=== PATIENT | female | born 1980 | race Caucasian/White ===

== ENCOUNTER 2016-10-18 17:26 | Emergency (ER) | payer SELFPAY ==
--- NOTE | 2016-10-18 18:32 | ED Physician Documentation ---
Head Injury - HISTORIAN Historian: patient - HPI Stated Complaint: facial injury Chief Complaint: Head Injury Additional Information: box fell and hit right jaw, no loc Onset: just prior to arrival Where: work Timing: still present Context: direct blow Severity: mild Loss of Consciousness: no loss of consciousness Further Comments: no - ROS CONST: no problems CVS/RESP: none EYES/ENT: none MS/SKIN/LYMPH: denies: weakness, numbness, neck pain, back pain, ankle swelling , leg swelling, rash GI/: denies: nausea, vomiting, abdominal pain, problems urinating - PAST HX Past History: none Immunizations: referred to PCP Allergies/Adverse Reactions: Allergies Allergy/AdvReac Type Severity Reaction Status Date / Time No Known Allergies Allergy Unverified 10/18/16 17:45 Home Medications: Ambulatory Orders Medication Instructions Recorded NK [NK] 10/18/16 - SOCIAL HX Smoking History: non-smoker Alcohol Use: none Drug Use: none - FAMILY HX Family History: no significant history - VITAL SIGNS Vital Signs: Vital Signs Temp Pulse Resp BP Pulse Ox 97.5 F L 98 H 14 128/90 99 10/18/16 17:37 10/18/16 17:37 10/18/16 17:37 10/18/16 17:37 10/18/16 17:37 - REVIEWED ASSESSMENTS Nursing Assessment Reviewed: Yes Vitals Reviewed: Yes Progress - Results/Orders Results/Orders: x-ray facial bones and c-spine - Progress Progress: pt. stable entire time in er Critical Care Note - Critical Care Note Total Time (mins): 0 ED Results Lab/Radiology - Lab Results Lab Results: no testing ordered - Radiology Radiology Impressions: x-rays of c-spine and facial bones neg - Orders Orders: ED Orders Category Date Time Status C SPINE 2 OR 3 VIEWS [RAD] Stat Exams 10/18/16 Ordered FACIAL BONES 3 VIEWS OR MORE [RAD] Stat Exams 10/18/16 Ordered Head Injury Physical Exam - Physical Exam General Appearance: alert, mild distress Head: non-tender, trauma (bruise right mandible) Neck: non-tender Nexus Criteria: Nexus criteria neg Eyes: ELIER, EOMI, lids & conjunct. nml ENT: nml external inspection, pharynx nml Neuro: alert, oriented x3, cooperative Cranial: nml as tested, no evidence of acute CVA Cerebellar: nml as tested Sensorimotor: motor nml, sensation nml Resp/CVS: chest non-tender, breath sounds nml, heart sounds nml, no resp. distress, lungs clear, reg. rate & rhythm Abdomen: non-tender, no organomegaly, nml bowel sounds, no distention Back: non-tender, painless ROM Skin: warm/dry, normal color Extremities: atraumatic, nml ROM, gait nml - Siobhan Coma Score Coma Scale Eye Opening: Spontaneous Coma Scale Verbal: Oriented Coma Scale Motor: Obeys Commands Discharge Clincal Impression: Contusion of face Qualifiers: Encounter type: initial encounter Qualified Code(s): S00.83XA - Contusion of other part of head, initial encounter Referrals: Emely Guevara FNP [Primary Care Provider] - 2 Days Home Medications: Ambulatory Orders NK [NK] 10/18/16 Comments: recommendation of ice and otc motrin Condition: Stable Disposition: 01 HOME, SELF-CARE Decision to Admit: NO Decision Time: 18:30
[2016-10-18 18:42] VITALS: BP 124/88
--- NOTE | 2016-10-18 20:02 | Diagnostic Imaging Report ---
RADHA WARD~ [facility] [address] [facility].[address] [address] ~ ~ ~ ~ Report Submission Date: Oct 18, 2016 6:32:23 PM CDT Patient ~ Study Name: MICHELLE GARLAND ~ Date: Oct 18, 2016 6:07:37 PM CDT ~ Modality Type: CR Gender: F ~ Description: SPINE : 76 ~ Institution: [facility] Physician: RADHA WARD ~ ~ ~ ~ Cervical spine series 3 views Date of Exam: October 18, 2016. History:~ C-SPINE, DROPPED A TRAY OF SILVERWARE ON HEAD/CHIN TODAY (Hx) Findings: There is straightening of the normal cervical lordosis. No acute fracture or subluxation is identified. The craniocervical and cervicothoracic junctions are normal. The dens appears intact, however, is partially obscured by superimposed calvarium. Mild bilateral degenerative facet joint changes are noted. Impression: No acute fracture or subluxation. ~ Electronically signed on Oct 18, 2016 6:32:23 PM CDT by: Mohan LOMBARDI
--- NOTE | 2016-10-18 20:02 | Diagnostic Imaging Report ---
RADHA WARD~ [facility] [address] [facility].[address] [address] ~ ~ ~ ~ Report Submission Date: Oct 18, 2016 6:30:33 PM CDT Patient ~ Study Name: MICHELLE GARLAND ~ Date: Oct 18, 2016 5:59:44 PM CDT ~ Modality Type: CR Gender: F ~ Description: FACIAL BONES : 76 ~ Institution: [facility] Physician: RADHA WARD ~ ~ ~ ~ Facial bones 3 views Date of Exam: October 18, 2016. History:~ FACIAL BONES, DROPPED A TRAY OF SILVERWARE ON HEAD/RT SIDED CHIN TODAY , PAIN AND SWELLING (Hx) Findings: Calvarial thickening is noted. No acute fracture is identified. The visualized paranasal sinuses are clear. The mastoid air cells appear clear. No nasal bone deformity is identified. Impression: No acute fracture identified. ~ Electronically signed on Oct 18, 2016 6:30:33 PM CDT by: Mohan LOMBARDI
== END 2016-10-18 18:41 | disposition home or self-care (01) ==
LOC: ED 17:26
DX: S00.83XA Contusion of other part of head, initial encounter (principal); X58.XXXA Exposure to other specified factors, initial encounter; Y93.9 Activity, unspecified; Y99.9 Unspecified external cause status
CPT/HCPCS: 70150; 72040; 99283

== ENCOUNTER 2016-10-30 10:23 | Outpatient (CLI) | payer MEDICARE | END 2016-10-30 10:24 | LOC: LABRHC 10:23 | PROVIDERS: ATTEND Physician Assistant | DX: Z12.4 Encounter for screening for malignant neoplasm of cervix (principal); N89.8 Other specified noninflammatory disorders of vagina | CPT/HCPCS: 87480; 87510; 88148; G0143 ==

== ENCOUNTER 2017-02-26 13:00 | Emergency (ER) | payer MEDICARE ==
--- NOTE | 2017-02-26 13:11 | ED Physician Documentation ---
General Adult - HISTORIAN Historian: patient, other (sister ) - HPI Stated Complaint: sore throat, cough, congestion Chief Complaint: Sore Throat Onset: days ago (1) Timing: still present Severity: mild Modifying Factors: none Context: She states she has had sytmpoms for one day Location: Sore throat, headache, cough, congestion Further Comments: no Last known Well Date: 02/25/17 Last Known Well Time: 08:00 Last known Well Code/Unknown Code: Unknown - ROS CONST: denies: fever, sweating, recent illness, weakness EYES/ENT: sore throat, nasal drainage, nasal congestion. denies: problems with vision CVS/RESP: cough (non productive ). denies: chest pain, shortness of breath GI/: none MS/SKIN/LYMPH: none NEURO/PSYCH: headache. denies: dizziness, tingling - PAST HX Past History: other (microcephalic ) Surgeries/Procedures: none Immunizations: referred to PCP Allergies/Adverse Reactions: Allergies Allergy/AdvReac Type Severity Reaction Status Date / Time No Known Allergies Allergy Verified 02/26/17 13:14 Home Medications: Ambulatory Orders Medication Instructions Recorded NK [NK] 10/18/16 - SOCIAL HX Smoking History: non-smoker Alcohol Use: none Drug Use: none - FAMILY HX Family History: No - VITAL SIGNS Vital Signs: Vital Signs Temp Pulse Resp BP Pulse Ox 124/88 10/18/16 18:41 - REVIEWED ASSESSMENTS Nursing Assessment Reviewed: Yes Vitals Reviewed: Yes General Adult Physical Exam - PHYSICAL EXAM GENERAL APPEARANCE: no distress EENT: eye inspection normal, ENT inspection normal NECK: normal inspection RESPIRATORY: no resp distress, chest non-tender, breath sounds normal CVS: reg rate & rhythm, heart sounds normal, equal pulses, no murmur ABDOMEN: soft, no organomegaly, normal bowel sounds, no distension SKIN: warm/dry, normal color, cyanosis EXTREMITIES: non-tender NEURO: oriented X3, CN's nml as tested, motor nml (posterior pharnyx it redness and drainge ) Discharge Clincal Impression: Cold Referrals: Primary Doctor,No [Primary Care Provider] - 2 Days Condition: Stable Disposition: 01 HOME, SELF-CARE Decision to Admit: NO Date of Decison to Admit: 02/26/17 Decision Time: 14:09
[2017-02-26 14:17] VITALS: BP 138/84
== END 2017-02-26 14:11 | disposition home or self-care (01) ==
LOC: ED 13:00
DX: J00 Acute nasopharyngitis [common cold] (principal)
CPT/HCPCS: 87070; 87880; 99283

== ENCOUNTER 2017-03-12 17:57 | Emergency (ER) | payer MEDICARE ==
[2017-03-12 18:29] LABS: BASOPHILS % 0.4 (0.0-1.5); EOSINOPHILS % 1.5 % (0.0-6.8); MEAN CORPUSCULAR HEMOGLOBIN 30.2 pg (28.0-34.0); MEAN CORPUSCULAR VOLUME 88.8 fl (80.0-100.0); MONOCYTES % 4.5 % (0.0-11.0); NEUTROPHILS # 5.6 # k/uL (1.4-7.7)
[2017-03-12 18:43] LABS: eGFR (African) > 60; eGFR (Non-African) > 60
--- NOTE | 2017-03-12 20:48 | ED Physician Documentation ---
Seizure - HISTORIAN Historian: patient - HPI Stated Complaint: seizure Chief Complaint: Seizure Timing/Onset/Duration: single episode (30 seconds) Last known Well Date: 03/12/17 Last Known Well Time: 16:00 Last known Well Code/Unknown Code: Known Witnessed By: family Preceding Symptoms: recent illness (upper respiratory infection) Character of Seizure(s): "shaking all over". denies: incontinence of urine, incontinence of stool, lost pulse Postictal Symptoms: other (sleepy) Location of Injury: none Further Comments: yes (37 year old female patient brought in via EMS after 30 second seizure at home. Patient had seizures as a child due to hydrocephalus. Has been off medication 13 years. 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 Immunizations: UTD Allergies/Adverse Reactions: Allergies Allergy/AdvReac Type Severity Reaction Status Date / Time No Known Allergies Allergy Verified 03/12/17 18:13 Home Medications: Ambulatory Orders Medication Instructions Recorded NK [NK] 10/18/16 - SOCIAL HX Smoking History: non-smoker - FAMILY HX Family History: denies: none - VITAL SIGNS Vital Signs: Vital Signs Temp Pulse Resp BP Pulse Ox 98.6 F 105 H 16 149/95 98 03/12/17 17:58 03/12/17 17:58 03/12/17 17:58 03/12/17 17:58 03/12/17 17:58 - REVIEWED ASSESSMENTS Nursing Assessment Reviewed: Yes Vitals Reviewed: Yes Progress - Progress Progress: Patient denies any pain, injury, polydipsia, no home medications, denies history of hyponatremia. Reviewed lab results, recommended transfer to higher level of care and neurology consult. 1914 Call to [place] for transfer. 1999 Call returned from [facility] - change house attendant, orders to start Keppra and discharge patient home, requested consult with hospitalist to discuss Na of [phone] Call from [facility], patient accepted by Dr Rivers pending head CT. Updated family on plan of care. [address] [place] with CT results. ED Results Lab/Radiology - Lab Results Lab Results: Lab Results 03/12/17 03/12/17 18:25 18:25 WBC 8.30 K/ul K/ul (4.00-12.00) RBC 4.52 M/ul M/ul (3.90-5.20) Hgb 13.6 g/dL g/dL (12.0-16.0) Hct 40.1 % % (34.5-46.5) MCV 88.8 fl fl (80.0-100.0) MCH 30.2 pg pg (28.0-34.0) MCHC 34.0 g/dL g/dL (30.0-36.0) RDW 12.6 % % (11.3-14.3) Plt Count 324 K/mm3 K/mm3 (130-400) Neut % (Auto) 66.9 % % (39.0-79.0) Lymph % (Auto) 25.4 % % (16.0-50.0) Hyde % (Auto) 4.5 % % (0.0-11.0) Eos % (Auto) 1.5 % % (0.0-6.8) Baso % (Auto) 0.4 (0.0-1.5) Neut # (Auto) 5.6 # k/uL # k/uL (1.4-7.7) Lymph # (Auto) 2.1 # k/uL # k/uL (0.6-4.0) Hyde # (Auto) 0.4 # k/uL # k/uL (0.0-0.9) Eos # (Auto) 0.1 # k/uL # k/uL (0.0-0.6) Baso # (Auto) 0.0 # k/uL # k/uL (0.0-0.5) Reactive Lymphs % 1.3 % % (0.0-5.0) Reactive Lymphs # 0.1 # k/uL # k/uL (0.0-0.8) Sodium 127 mmol/L L mmol/L (137-145) Potassium 4.0 mmol/L mmol/L (3.5-5.1) Chloride 92 mmol/L L mmol/L (98-107) Carbon Dioxide 25 mmol/L mmol/L (22-30) BUN 10 mg/dL mg/dL (7-17) Creatinine 0.40 mg/dL L mg/dL (0.52-1.04) Estimated Creat Clear 163 Est GFR ( Amer) > 60 (60 - ) Est GFR (Non-Af Amer) > 60 (60 - ) Glucose 94 mg/dL mg/dL (74-106) Calcium 8.6 mg/dL mg/dL (8.4-10.2) Total Bilirubin 0.4 mg/dL mg/dL (0.2-1.3) AST 26 U/L U/L (15-46) ALT 28 U/L U/L (13-69) Alkaline Phosphatase 59 U/L U/L (38-126) Total Protein 7.2 g/dL g/dL (6.3-8.2) Albumin 3.9 g/dL g/dL (3.5-5.0) - Radiology Radiology Impressions: Computed tomography of the head without contrast History: Seizure and hydrocephalus Findings: Transverse brain sections are obtained without contrast revealing absence of the corpus callosum and portions of the septum pellucidum. Superior cerebellar atrophy is present. Extensive bilateral dural ossification is observed. There is no acute intracranial hemorrhage or significant hydrocephalus. Impression: 1. 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 3. Extensive dural ossification. - Orders Orders: ED Orders Category Date Time Status Place IV Lock 1T Care 03/12/17 18:[address] BRAIN W/O CONTRAST Stat Exams 03/12/17 Ordered CBC/PLATELET/DIFF Stat Lab 03/12/17 18:25 Completed CMP Stat Lab 03/12/17 18:25 Completed UA W/MICRO IF INDICATED Stat Lab 03/12/17 18:10 Ordered URINE HCG Stat Lab 03/11/17 18:35 Ordered EKG WITH COMPARISON Stat Ther 03/12/17 19:25 Ordered Seizure Physical Exam - Physical Exam General Appearance: no acute distress, alert Altered Mental Status Higher Functions: alert, oriented x3, no evidence of acute CVA, other (hydrocephalus noted; enlarge cranium) EENT: nml eye inspection, PERRL, nml ENT inspection, no apparent trauma, pharynx nml Neck/Back: normal inspection, thyroid normal Respiratory: no resp. distress, breath sounds nml, no evidence of rib injury CVS: reg rate & rhythm, heart sounds normal, equal pulses, no murmur, no gallop , PMI nml, no JVD, no friction rub, 24 Abdomen: non-tender, no organomegaly, nml bowel sounds, no distention Skin: normal color, warm/dry, NR, INT, PAL, DR Extremities: normal range of motion, non-tender, normal inspection, no pedal edema, no calf tenderness, normal capillary refill Observed Seizure Activity in ED: awake Discharge Clincal Impression: Hyponatremia, Seizure Referrals: Primary Doctor,No [Primary Care Provider] - 2 Days Condition: Stable Disposition: 02 XFER SHT-TRM HOSP Decision to Admit: NO Decision Time: 20:54
--- NOTE | 2017-03-12 20:57 | Diagnostic Imaging Report ---
CONI NELSON (RUTHANN) - ER [facility] [address] [facility].[address] 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 Superior cerebellar atrophy is present. Extensive bilateral dural ossification is observed. There is no acute intracranial hemorrhage or significant hydrocephalus. Impression: 1. 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 3. Extensive dural ossification. 4. No acute intracranial abnormality observed. Electronically signed on Mar 12, 2017 8:49:55 PM MOLD MACHINE OPERATOR by: Kranthi LOMBARDI
[2017-03-12 22:10] VITALS: BP 142/97
[2017-03-13 05:48] LABS: APPEARANCE,URINE CLOUDY (CLEAR); COLOR,URINE AMBER (YELLOW); OCCULT BLOOD,URINE 3+ (NEGATIVE); URINE HCG NEGATIVE (NEGATIVE); UROBILINOGEN URINE 0.2 Eu (0.2-1.0)
== END 2017-03-12 21:23 | disposition short-term general hospital (02) ==
LOC: ED 17:57
DX: E87.1 Hypo-osmolality and hyponatremia (principal); R56.9 Unspecified convulsions
CPT/HCPCS: 70450; 80053; 81002; 81025; 85025; 99284